=== PATIENT | male | born 1950 | race Caucasian/White ===

== ENCOUNTER → 2017-11-14 13:27 | Outpatient (CLI) | payer MEDICAID, SELFPAY ==
[2017-11-14 14:03] LABS: Basophils # 0.1 K/mm3 (0-0.2); Eosinophils # 0.1 K/mm3 (0.0-0.4); Eosinophils % 2.3 % (0.1-12.0); Hematocrit 40.8 % (42.0-52.0); Hemoglobin 13.5 g/dL (14.1-18.0); Lymphocytes # 1.6 K/mm3 (0.7-4.5); Lymphocytes % 33.3 K/mm3 (10-50); Mean Corpuscular Hemoglobin 32.9 pg (27.0-31.2); Mean Corpuscular Volume 99.7 fl (80-94); Mean Platelet Volume 7.9 fl (7.4-10.4); Monocytes # 0.3 K/mm3 (0.1-1.0); Monocytes % 6.7 % (1.7-9.3); Neutrophils # 2.7 K/mm3 (1.8-7.8); Neutrophils % 56.7 % (37.0-80.0); Platelet Count 206 K/mm3 (142-424); Red Blood Count 4.09 M/mm3 (4.60-6.20); Red Cell Distribution Width 13.4 % (11.5-17.5); White Blood Count 4.8 K/mm3 (4.8-10.8)
[2017-11-14 14:26] LABS: Hemoglobin A1C 5.5 % (0.0-7.0)
[2017-11-14 14:40] LABS: Alanine Aminotransferase 30 U/L (12-78); Albumin Level 3.7 gm/dL (3.4-5.0); Albumin/Globulin Ratio 1.1 (1.1-1.8); Alkaline Phosphatase 154 U/L (46-116); Anion Gap 9.1 mEq/L (5-15); Aspartate Amino Transferase 16 U/L (15-37); Bilirubin,Total 0.4 mg/dL (0.2-1.0); Blood Urea Nitrogen 14 mg/dL (7-18); Calcium 8.9 mg/dL (8.5-10.1); Carbon Dioxide 30 mmol/L (21.0-32.0); Chloride 107 mmol/L (98-107); Creatinine,Serum 0.78 mg/dL (0.70-1.30); Estimated Glomerular Filt Rate 100 ml/min (>60); GFR (African American) 121 ML/MIN (>60); Globulin 3.4 gm/dl (1.3-3.2); Glucose 99 mg/dL (74-106); Potassium 5.1 mmoL/L (3.5-5.1); Sodium 141 mmol/L (136-145); Total Protein,Serum 7.1 gm/dL (6.4-8.2)
[2017-11-15 16:43] LABS: Rapid Plasma Reagin Ab Titer Non Reactive (NonRea<1:1)
== END ==
PROVIDERS: Visit Provider Internal Medicine Adolescent Medicine
DX: H54.62 Unqualified visual loss, left eye, normal vision right eye (principal); R51 Headache
CPT/HCPCS: 36415; 80053; 83036; 85025; 86592

== ENCOUNTER → 2017-11-19 13:04 | Outpatient (CLI) | payer MEDICARE, MEDICAID, SELFPAY ==
--- NOTE | 2017-11-19 13:08 | MR_ITS ---
MR head/brain wo/w con HISTORY: Headache, visual loss left eye ITS.REASON: VISUAL LOSS, LEFT EYE ORDERING PHYSICIAN: Regis Mansfield MD PATIENT AGE: 67 years Comparison: None TECHNIQUE: Standard multiplanar multiecho sequences are performed without and with gadolinium enhancement. FINDINGS: No midline shift, mass effect, intracranial hemorrhage, or hydrocephalus is evident. There is mild generalized atrophy is somewhat greater in the posterior parietal region. No acute infarction. The pituitary and optic chiasm have an unremarkable appearance. No enhancing lesions. There are a few scattered periventricular and subcortical T2 white matter hyperintensities which are nonspecific. Mild mucosal thickening of the ethmoid and frontal sinuses. No sinus air-fluid level. There is a small amount fluid in the right mastoid sinus. No obvious ocular or orbital mass. No large aneurysm apparent. IMPRESSION: 1. No acute intracranial findings. 2. Generalized atrophy somewhat greater in the parietal lobes.
--- NOTE | 2017-11-19 14:04 | HMH.ITSHM ---
HYDROCODONE NEURONTIN GABAPENTIN B-12
== END ==
PROVIDERS: Family Provider Internal Medicine Adolescent Medicine; PCP Internal Medicine Adolescent Medicine; Visit Provider Internal Medicine Adolescent Medicine
DX: H54.62 Unqualified visual loss, left eye, normal vision right eye (principal); R51 Headache
CPT/HCPCS: 70553; A9576

== ENCOUNTER → 2018-07-24 13:15 | Outpatient (CLI) | payer MEDICARE, MEDICAID, SELFPAY ==
--- NOTE | 2018-07-24 13:20 | CT_ITS ---
CT lung screening EXAM: CT LUNG LOW DOSE WO CONTRAST HISTORY: ITS.REASON: TOBACCO USE ORDERING PHYSICIAN: Regis Mansfield MD PATIENT AGE: 68 years COMPARISON: None TECHNIQUE: The exam was performed on a GE Light Speed [address] scanner using 2.90 mGy CTDI. A low dose helical CT CHEST was performed on a multi-detector scanner. All CT scans at the facility use one or more dose reduction, viz: automated exposure control, ma/kV adjustment per patient size (including targeted exams where dose is matched to indication, i.e. head), or iterative reconstruction technique. The LDCT was performed in a facility that meets the criteria for the screening program. Data regarding this exam was submitted to ACR which is an approved registry. The order for this exam indicates that it came as a result of a lung cancer screening counseling shard decision-making visit that included all the elements required of such a visit including smoking cessation. The radiologist interpreting this exam meets the CMS criteria for the LDCT lung cancer screening program. The exam is reported using the Lung-RADS classification scale and reported to the ACR registry. NOTE: This study was performed for the specific purposes of lung cancer screening and is not an alternative to diagnostic chest CT. RADIATION DOSE: CTDI vol(CT dose Index-volume) = 2.90mG DLP (Dose Length Product) = 110.46 mGcm FINDINGS: Changes of COPD with centrilobular emphysema and old granulomatous disease. Gynecomastia is present. There are scattered fibrotic changes. Biapical opacities are present measuring 7 mm on the right and 8 mm on the left. 8 mm fissural nodule is present. Subpleural 6 mm nodule present in the left lower lobe. There are coronary artery calcifications. Small mediastinal lymph nodes are present the largest of which is approximately 2 cm. IMPRESSION: 1. Lung RADS Category: 3, probably benign, scattered pulmonary nodules some of which may be due to areas of fibrosis the largest of which is 8 mm 2. Other findings: COPD, centrilobular emphysema, Coronary artery calcification, mildly prominent mediastinal lymph nodes RECOMMENDATIONS: 6 month LDCT follow-up
== END ==
PROVIDERS: PCP Internal Medicine Adolescent Medicine; Visit Provider Internal Medicine Adolescent Medicine
DX: Z12.2 Encounter for screening for malignant neoplasm of respiratory organs (principal); Z87.891 Personal history of nicotine dependence

== ENCOUNTER 2020-04-14 10:00 | Outpatient (RCR) | payer MEDICARE, MEDICAID, SELFPAY | END 2020-04-14 10:05 | disposition home or self-care (01) | LOC: PT 10:00 | PROVIDERS: PCP Internal Medicine Adolescent Medicine; Visit Provider Physical Medicine & Rehabilitation | DX: S72.92XA Unspecified fracture of left femur, initial encounter for closed fracture (principal); S72.91XA Unspecified fracture of right femur, initial encounter for closed fracture; S32.402A Unspecified fracture of left acetabulum, initial encounter for closed fracture; S82.144A Nondisplaced bicondylar fracture of right tibia, initial encounter for closed fracture | CPT/HCPCS: 97163 ==

== ENCOUNTER → 2020-08-20 12:21 | Outpatient (CLI) | payer MEDICARE, MEDICAID, SELFPAY ==
[2020-08-20 13:05] LABS: Basophils # 0.1 K/mm3 (0-0.2); Basophils % 1.1 % (0.1-2.0); Eosinophils # 0.5 K/mm3 (0.0-0.4); Eosinophils % 6.1 % (0.1-12.0); Hematocrit 38.3 % (42.0-52.0); Hemoglobin 12.8 g/dL (14.1-18.0); Lymphocytes # 2.4 K/mm3 (0.7-4.5); Lymphocytes % 28.1 % (10-50); Mean Corpuscular HGB Conc 33.5 g/dL (31.8-35.4); Mean Corpuscular Hemoglobin 31.9 pg (27.0-31.2); Mean Corpuscular Volume 95.4 fl (80-94); Mean Platelet Volume 8.5 fl (7.4-10.4); Monocytes # 0.6 K/mm3 (0.1-1.0); Monocytes % 6.5 % (1.7-9.3); Neutrophils # 4.9 K/mm3 (1.8-7.8); Neutrophils % 58.2 % (37.0-80.0); Platelet Count 238 K/mm3 (142-424); Red Blood Count 4.01 M/mm3 (4.60-6.20); Red Cell Distribution Width 13.6 % (11.5-17.5); White Blood Count 8.4 K/mm3 (4.8-10.8)
[2020-08-20 14:01] LABS: Alanine Aminotransferase 16 U/L (12-78); Albumin Level 4.3 g/dl (3.5-5.0); Albumin/Globulin Ratio 1.5 (1.1-1.8); Alkaline Phosphatase 137 U/L (38-126); Anion Gap 7.6 mEq/L (5-15); Aspartate Amino Transferase 24 U/L (17-59); Bilirubin,Total 0.6 mg/dl (0.2-1.3); Blood Urea Nitrogen 18 mg/dl (9-20); Calcium 9.9 mg/dl (8.4-10.2); Carbon Dioxide 31 mmol/L (22.0-30.0); Chloride 104 mmol/L (98-107); Chol/HDL Ratio 4.4 (1-3.5); Cholesterol 145 mg/dl (140-200); Estimated Glomerular Filt Rate 96 ml/min (>60); GFR (African American) 116 ML/MIN (>60); Globulin 2.9 g/dL (1.3-3.2); Glucose 94 mg/dl (74-100); HDL Cholesterol 33 mg/dl (40-60); Potassium 4.6 mmoL/L (3.5-5.1); Sodium 138 mmol/L (136-145); Total Protein,Serum 7.2 g/dl (6.3-8.2); Triglycerides 131 mg/dl (30-150); VLDL Cholesterol 26 mg/dL (0-40)
[2020-08-20 14:12] LABS: Direct LDL Cholesterol 77.62 mg/dL (100-129)
[2020-08-23 17:36] LABS: HIV 1 Ab Positive (Negative); HIV 2 Ab Negative (Negative); HIV-1 Ab CHG YES; HIV-2 Ab CHG YES
[2020-08-23 20:28] LABS: HIV Screen 4th Generation wRfx Reactive (Non Reactive); Interpretation: HIV-1 Positive (.)
== END ==
PROVIDERS: Visit Provider Internal Medicine Adolescent Medicine
DX: Z21 Asymptomatic human immunodeficiency virus [HIV] infection status (principal); Z79.899 Other long term (current) drug therapy; Z11.4 Encounter for screening for human immunodeficiency virus [HIV]; D64.9 Anemia, unspecified
CPT/HCPCS: 36415; 80053; 80061; 85025; 86701; 86702; 86703; G0432

== ENCOUNTER → 2020-09-14 17:19 | Outpatient (CLI) | payer MEDICARE, MEDICAID, SELFPAY ==
[2020-09-17 01:07] LABS: HIV 1 RNA, Real time PCR 50 copies/mL (.)
== END ==
PROVIDERS: Visit Provider Internal Medicine Adolescent Medicine
DX: Z21 Asymptomatic human immunodeficiency virus [HIV] infection status (principal)
CPT/HCPCS: 36415; 87536

== ENCOUNTER → 2020-09-15 14:32 | Outpatient (CLI) | payer MEDICARE, MEDICAID, SELFPAY | PROVIDERS: Visit Provider Internal Medicine Adolescent Medicine | DX: Z21 Asymptomatic human immunodeficiency virus [HIV] infection status (principal) ==

== ENCOUNTER → 2020-11-30 16:56 | Outpatient (CLI) | payer MEDICARE, MEDICAID, SELFPAY ==
[2020-11-30 18:57] LABS: Basophils # 0.1 K/mm3 (0-0.2); Basophils % 0.8 % (0.1-2.0); Eosinophils # 0.5 K/mm3 (0.0-0.4); Eosinophils % 5.3 % (0.1-12.0); Hematocrit 36.6 % (42.0-52.0); Hemoglobin 12.6 g/dL (14.1-18.0); Lymphocytes # 2.5 K/mm3 (0.7-4.5); Lymphocytes % 29.4 % (10-50); Mean Corpuscular HGB Conc 34.5 g/dL (31.8-35.4); Mean Corpuscular Hemoglobin 31.7 pg (27.0-31.2); Mean Corpuscular Volume 92.1 fl (80-94); Mean Platelet Volume 8.3 fl (7.4-10.4); Monocytes # 0.6 K/mm3 (0.1-1.0); Monocytes % 6.8 % (1.7-9.3); Neutrophils % 57.7 % (37.0-80.0); Platelet Count 197 K/mm3 (142-424); Red Blood Count 3.98 M/mm3 (4.60-6.20); Red Cell Distribution Width 13.7 % (11.5-17.5); White Blood Count 8.6 K/mm3 (4.8-10.8)
[2020-11-30 19:21] LABS: Chloride 103 mmol/L (98-107); Potassium 4.6 mmoL/L (3.5-5.1); Sodium 138 mmol/L (136-145)
[2020-11-30 19:23] LABS: Blood Urea Nitrogen 12 mg/dl (9-20); Estimated Glomerular Filt Rate 96 ml/min (>60); GFR (African American) 116 ML/MIN (>60)
[2020-11-30 19:24] LABS: Alanine Aminotransferase 24 U/L (12-78); Albumin/Globulin Ratio 1.3 (1.1-1.8); Alkaline Phosphatase 156 U/L (38-126); Anion Gap 9.6 mEq/L (5-15); Aspartate Amino Transferase 31 U/L (17-59); Bilirubin,Total 0.4 mg/dl (0.2-1.3); Calcium 9.1 mg/dl (8.4-10.2); Carbon Dioxide 30 mmol/L (22.0-30.0); Glucose 96 mg/dl (74-100)
[2020-11-30 19:34] LABS: NT Pro Brain Natriuretic Pep. 129 pg/mL (0-125)
[2020-12-03 17:34] LABS: HIV 1 RNA, Real time PCR 30 copies/mL (.)
== END ==
PROVIDERS: Visit Provider Internal Medicine Adolescent Medicine
DX: R60.9 Edema, unspecified (principal); Z21 Asymptomatic human immunodeficiency virus [HIV] infection status; R79.0 Abnormal level of blood mineral; R06.09 Other forms of dyspnea
CPT/HCPCS: 36415; 80053; 83880; 85025; 87536

== ENCOUNTER → 2020-12-07 12:12 | Outpatient (CLI) | payer MEDICARE, MEDICAID, SELFPAY ==
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
--- NOTE | 2020-12-07 13:57 | CT_ITS ---
PROCEDURE: CT LUNG SCREENING CLINICAL INDICATION: HX OF NICOTINE DEPENDENCE COMPARISON: CT LUNGSCREEN CT lung screening from 07/24/2018 CR XR LUMBAR SPINE MIN 4V from 12/07/2020 TECHNIQUE: The exam was performed on a GE Light Speed [address] scanner using 2.90 mGy CTDI. A low dose helical CT CHEST was performed on a multi-detector scanner. All CT scans at the facility use one or more dose reduction, viz: automated exposure control, ma/kV adjustment per patient size (including targeted exams where dose is matched to indication, i.e. head), or iterative reconstruction technique. The LDCT was performed in a facility that meets the criteria for the screening program. Data regarding this exam was submitted to ACR which is an approved registry. The order for this exam indicates that it came as a result of a lung cancer screening counseling shard decision-making visit that included all the elements required of such a visit including smoking cessation. The radiologist interpreting this exam meets the CMS criteria for the LDCT lung cancer screening program. The exam is reported using the Lung-RADS classification scale and reported to the ACR registry. NOTE: This study was performed for the specific purposes of lung cancer screening and is not an alternative to diagnostic chest CT. RADIATION DOSE: CTDI vol(CT dose Index-volume) = 2.90mG DLP (Dose Length Product) = mGcm FINDINGS: COPD with scattered areas of scarring with bronchial thickening and evidence of old granulomatous disease. Scattered areas of pulmonary fibrosis. Benign-appearing fissural nodule in the right minor fissure unchanged. Biapical fibronodular changes are stable. No new suspicious nodules apparent. No change mildly prominent mediastinal lymph nodes OTHER FINDINGS: Cardiomegaly. Coronary artery calcifications. Gynecomastia. Small hiatal hernia. Wedge compression changes of T11 and T12 which have developed since 07/24/2018 with loss of height of approximately 30 percent at T11 and 40 percent at T12 IMPRESSION: Lung-RADS Category 2 Benign Appearance or Behavior Follow-up: Continue annual screening with LDCT in 12 months New wedge compression changes at T11 and T12 Dictated by: Aftab Bowers MD 12/13/2020 09:51 Aftab Bowers MD in [place] 12/13/2020 09:51
== END ==
PROVIDERS: PCP Internal Medicine Adolescent Medicine; Visit Provider Nurse Practitioner Family
DX: R60.0 Localized edema (principal); M54.41 Lumbago with sciatica, right side; Z87.891 Personal history of nicotine dependence; Z12.2 Encounter for screening for malignant neoplasm of respiratory organs
CPT/HCPCS: 71271; 72110; 93306

== ENCOUNTER → 2020-12-17 13:59 | Outpatient (CLI) | payer MEDICARE, MEDICAID, SELFPAY ==
--- NOTE | 2020-12-17 14:15 | MR_ITS ---
PROCEDURE INFORMATION: Exam: MR Lumbar Spine Without and With Contrast Exam date and time: 12/17/2020 2:15 PM Age: 70 years old Clinical indication: Low back pain; Prior surgery; Surgery date: 6+ months; Surgery type: Lumbar surgery years ago; Patient HX: 40 percent wedge compression changes of t12 with possible retropulsion of the posterior superior aspect. Mri May provide further evaluation to determine the acuteness of the compression changes which have developed since 07/24/2018; Additional info: Abnormal findings on diagnostic imaging TECHNIQUE: Imaging protocol: Multiplanar magnetic resonance images of the lumbar spine without and with intravenous contrast. Contrast material: PROHANCE; Contrast volume: 15 ml; Contrast route: IV; COMPARISON: RN FIELD/O MRI-L-SPINE W/O 03/15/2016 2:50 PM FINDINGS: Vertebrae: Compression fracture deformity of the superior endplate of the T12 vertebral body, with approximately 40% loss of vertebral body height and approximately 3 mm retropulsion of posterosuperior fracture fragment. T12 vertebral body is T1 hypointense and STIR hyperintense, suggesting acute/subacute fracture. Dextroscoliosis of the lumbar spine. Spinal cord: Conus terminates at the L1 level. L1-L2: No significant disc disease. No significant spinal canal stenosis. No neural foraminal stenosis. L2-L3: Moderate broad-based posterior disc bulge, causing ventral thecal sac effacement and minimal ventral cord flattening; mild bilateral facet arthropathy; bilateral lateral recess narrowing and moderate bilateral neural foraminal narrowing, left worse than right. L3-L4: No significant disc disease. No significant spinal canal stenosis. No neural foraminal stenosis. L4-L5: Mild broad-based posterior disc bulge, causing ventral thecal sac flattening; no central canal narrowing; mild bilateral facet arthropathy and ligamentum flavum hypertrophy; mild right neural foraminal narrowing. L5-S1: Discogenic endplate changes at the L3-L4 through L5-S1 levels. Mild bilateral facet arthropathy, right worse than left, with associated moderate right neural foraminal narrowing. No central canal narrowing. Sacrum/coccyx: Surgical changes of prior L3-L4 discectomy and posterior paraspinal arelis and pedicle screw fusion, without evidence of acute complications. Soft tissues: Unremarkable. Kidneys and ureters: Simple right renal cyst, for which no further evaluation necessary. IMPRESSION: 1. Compression fracture deformity of the superior endplate of the T12 vertebral body, with approximately 40% loss of vertebral body height and approximately 3 mm retropulsion of posterosuperior fracture fragment. T12 vertebral body is T1 hypointense and STIR hyperintense, suggesting acute/subacute fracture. 2. Multilevel lumbar spine spondylosis as described above.
--- NOTE | 2020-12-17 14:15 | MR_ITS ---
PROCEDURE INFORMATION: Exam: MR Thoracic Spine Without and With Contrast Exam date and time: 12/17/2020 2:15 PM Age: 70 years old Clinical indication: Pain in thoracic spine; With myelopathy; Prior surgery; Surgery date: 6+ months; Surgery type: Lumbar surgery years ago; Patient HX: 40 percent wedge compression changes of t12 with possible retropulsion of the posterior superior aspect. Mri May provide further evaluation to determine the acuteness of the compression changes which have developed since 07/24/2018; Additional info: Abnormal findings on diagnostic imaging TECHNIQUE: Imaging protocol: Multiplanar magnetic resonance images of the thoracic spine without and with contrast. Contrast material: PROHANCE; Contrast volume: 15 ml; Contrast route: IV; COMPARISON: CT LUNG SCREENING 12/07/2020 2:05 PM FINDINGS: Vertebrae: Compression fracture deformity of the T12 vertebral body, with approximately 40% loss of vertebral body height and approximately 3 mm retropulsion of posterosuperior fracture fragment. T12 vertebral body is T1 hypointense and STIR hyperintense, suggesting acute/subacute fracture. Chronic fracture deformity of the anterosuperior aspect of the T11 vertebral body. No evidence of abnormal contrast enhancement. Spinal cord: Normal signal. No cord compression. Discs/Spinal canal/Neural foramina: No significant disc disease. No significant spinal canal stenosis. Soft tissues: Unremarkable. IMPRESSION: Compression fracture deformity of the T12 vertebral body, with approximately 40% loss of vertebral body height and approximately 3 mm retropulsion of posterosuperior fracture fragment. T12 vertebral body is T1 hypointense and STIR hyperintense, suggesting acute/subacute fracture.
== END ==
PROVIDERS: PCP Internal Medicine Adolescent Medicine; Visit Provider Internal Medicine Adolescent Medicine
DX: R93.89 Abnormal findings on diagnostic imaging of other specified body structures (principal)
CPT/HCPCS: 72157; 72158; 76376; A9576

== ENCOUNTER → 2021-01-04 08:14 | Outpatient (POV) | payer MEDICARE, MEDICAID, SELFPAY ==
[2021-01-04 09:26] VITALS: BP 136/76; PULSE 76; RESP 18; O2SAT 98; BMI 24.7
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
== END ==
PROVIDERS: Visit Provider Clinical Nurse Specialist Family Health
DX: M47.896 Other spondylosis, lumbar region (principal); M54.16 Radiculopathy, lumbar region; S22.080A Wedge compression fracture of T11-T12 vertebra, initial encounter for closed fracture; M81.0 Age-related osteoporosis without current pathological fracture
CPT/HCPCS: 99202; G0463

== ENCOUNTER → 2021-03-22 09:24 | Outpatient (CLI) | payer MEDICARE, MEDICAID, SELFPAY ==
--- NOTE | 2021-03-22 09:29 | XR_ITS ---
PROCEDURE: XR DEXA AXIAL SKELETON CLINICAL HISTORY: DISORDER OF BONE,FX OF 12 TH THORACIC VEREBRA COMPARISON: No exams were available for comparison FINDINGS: Right radius 1/3 density is 0.542 with a T-score of -5.2. Left radius 1/3 density is 0.529 grams/centimeters sq with a T-score of -5.4. IMPRESSION: This patient is considered osteoporotic according to the World Health Organization criteria. Fracture risk is high. Treatment is advised. Based on these results a follow-up exam is recommended in 1 year. Dictated by: Aftab Bowers MD 03/22/2021 14:48 Aftab Bowers MD in [place] 03/22/2021 14:48
== END ==
PROVIDERS: PCP Internal Medicine Adolescent Medicine; Visit Provider Physician Assistant Medical
DX: S22.089A Unspecified fracture of T11-T12 vertebra, initial encounter for closed fracture (principal); M89.9 Disorder of bone, unspecified
CPT/HCPCS: 77080

== ENCOUNTER → 2021-10-28 14:45 | Outpatient (CLI) | payer MEDICARE, MEDICAID, SELFPAY ==
--- NOTE | 2021-10-28 14:54 | XR_ITS ---
FINAL REPORT CLINICAL HISTORY: T & L spine Mid back pain Hx of surg in 2018 Best images possible due to pt condition FINDINGS: THORACIC SPINE Three views were obtained. There is no acute fracture. There is no malalignment. There is about 60% compression deformity of the anterior aspect of T12 and about 60% compression deformity of T9. There is accentuation of thoracic kyphosis. There is no soft tissue abnormality. IMPRESSION: Findings are age indeterminate. Consider thoracic spine MRI to assess for marrow edema. LUMBAR SPINE Four views were obtained. There is posterior fusion hardware bridging L3-4. There is no acute fracture. There is 12 degrees of scoliosis convex to the right. There is moderate disc space narrowing at L5-S1. There is no soft tissue abnormality. IMPRESSION: No acute bony abnormality. Moderate disc space narrowing at L5-S1. Reviewed, Interpreted and Dictated by Marcial Benjamin MD Transcribed by Verna Poe Authenticated and [facility]
== END ==
PROVIDERS: PCP Internal Medicine Adolescent Medicine; Visit Provider Internal Medicine Adolescent Medicine
DX: M54.6 Pain in thoracic spine (principal); M54.50 Low back pain, unspecified
CPT/HCPCS: 72084

== ENCOUNTER → 2021-12-23 14:52 | Outpatient (CLI) | payer MEDICARE, MEDICAID, SELFPAY ==
--- NOTE | 2021-12-23 14:58 | CT_ITS ---
FINAL REPORT CLINICAL HISTORY: H/O NICOTINE DEPENDENCE 1 pack per day for 55 years copd COMPARISON: December 07, 2020; July 24, 2018 FINDINGS: Low-Dose Chest CT CTDI vol (mGy): 2.9 DLP (mGy-cm): 96.38 Axial images were obtained from the lung apex to the mid abdomen by computed tomography. Low-dose protocol was utilized. FINDINGS: CHEST: There is no axillary adenopathy. There are multiple borderline size mediastinal lymph nodes. The heart is proper size. There is no pericardial or pleural effusion. Limited images of the upper abdomen demonstrate a lobular mass along the lateral right kidney measuring up to 3.5 cm that cannot be accurately characterized. Lung window images demonstrate moderate changes of emphysema with moderate scarring. There is a calcified granuloma in the right upper lobe. There is a 7 mm nodule near the minor fissure the, stable from prior. There is no new mass or pulmonary nodule. IMPRESSION: S-modifier: Lobular right renal mass cannot be accurately characterized. Recommend renal mass protocol CT. Lung RADS category 2S. Recommend 12 month follow-up low-dose chest CT. Reviewed, Interpreted and Dictated by Ankit Yu III, MD Transcribed by Anoop Vazquez Authenticated and [facility]
== END ==
PROVIDERS: PCP Internal Medicine Adolescent Medicine; Visit Provider Internal Medicine Adolescent Medicine
DX: Z87.891 Personal history of nicotine dependence (principal); Z12.2 Encounter for screening for malignant neoplasm of respiratory organs
CPT/HCPCS: 71271

== ENCOUNTER 2022-02-21 14:54 | Emergency (ER) | payer MEDICARE, MEDICAID, SELFPAY ==
[2022-02-21 14:54] VITALS: BP 117/65; PULSE 105; RESP 20; TEMP 36.7; O2SAT 95; BMI 25.8
--- NOTE | 2022-02-21 15:20 | CT_ITS ---
FINAL REPORT TECHNIQUE: Axial CT images were performed through the head. Coronal reformatted images were submitted. This study was performed with techniques to keep radiation doses as low as reasonably achievable (ALARA). Individualized dose reduction techniques using automated exposure control or adjustment of mA and/or kV according to the patient's size were employed. CLINICAL HISTORY: slurred speech, stroke protocol FINDINGS: The head is asymmetrically positioned in the gantry. There is mild to moderate atrophy. The ventricles are normal in size. There is no evidence of hemorrhage. There is no mass or edema identified. There is no abnormal extra-axial fluid seen. The sinuses are well aerated. IMPRESSION: No acute intracranial process. Reviewed, Interpreted and Dictated by Marcial Benjamin MD Transcribed by Anoop Vazquez Authenticated and [facility]
--- NOTE | 2022-02-21 15:21 | HMH.EDGENADL ---
Discharge Plan Disposition Patient Disposition: Admitted as Observation Condition: Good Chief Complaint: Weakness Prescriptions Prescriptions: No Action hydrocodone-acetaminophen 10-325 mg tablet 1 tab PO QHS PRN acetaminophen 325 mg capsule 325 mg PO Q6H PRN peg 3350-electrolytes [Golytely] 236-22.74-6.74 -5.86 gram recon soln 240 ml PO Q10M Qty: 4000 0RF Rx Instructions: until fecal effluent is clear; do not exceed a total volume [id number] mL lamivudine-zidovudine [Combivir] 150-300 mg tablet 1 tab PO BID efavirenz [Sustiva] 600 mg tablet 600 mg PO QHS gabapentin 800 mg tablet 800 mg PO TID triamcinolone acetonide 0.1 % cream 1 applic TOPICAL TID Referrals Follow up/Referrals: Regis Mansfield MD [Primary Care Provider] - See instructions Clinical Impressions Clinical Impression: Hypoxia Discharge ED Provider: Cole Davidson General Adult HPI General Chief complaint: Weakness Stated complaint: Physician referral, fatigue, weakness Time Seen by Provider: 02/21/22 15:05 Mode of Arrival: Wheelchair Source of Information: Patient Limitations: No Limitations Description of Symptoms (Recalled from ER Triage Doc. by RN): PT STATES HES TIRED, ALL I WANT TO DO IS SLEEP FOR ABOUT 4-5 DAYS. History of Present Illness HPI narrative: brought by friend/family for general weakness and slurred speech, pt says he was tired and sleepy Severity: moderate Consistency: now resolved Relieving factors: none Exacerbating factors: none Associated symptoms: denies other symptoms Treatments prior to arrival: none Related Data Home Medications Medication Instructions Recorded Confirmed acetaminophen 325 mg capsule 325 mg PO Q6H PRN 07/31/18 07/31/18 efavirenz 600 mg tablet (Sustiva) 600 mg PO QHS 07/31/18 07/31/18 gabapentin 800 mg tablet 800 mg PO TID 07/31/18 07/31/18 hydrocodone 10 mg-acetaminophen 1 tab PO QHS PRN 07/31/18 07/31/18 325 mg tablet lamivudine 150 mg-zidovudine 300 1 tab PO BID 07/31/18 07/31/18 mg tablet (Combivir) triamcinolone acetonide 0.1 % 1 applic topical TID 07/31/18 07/31/18 topical cream Previous Rx's Medication Instructions Recorded peg 3350-electrolytes 236 240 ml PO Q10M #4,000 mL 07/31/18 gram-22.74 gram-6.74 gram-5.86 gram solution (Golytely) Allergies Allergy/AdvReac Type Severity Reaction Status Date / Time Penicillins [PENICILLINS] Allergy Unknown Verified 02/21/22 17:38 [facility] Social History Smoking Status: Current every day smoker alcohol intake: never substance use type: denies use current occupational status: unemployed Travel in the last 8 weeks: None ROS Obtained: Yes All systems reviewed & no additional complaints except as documented Physical Exam General General appearance: alert and in no apparent distress Head Head exam: atraumatic and normocephalic Eye Eye exam: Present normal appearance, PERRL and EOMI ENT ENT exam: Present normal exam, normal oropharynx and mucous membranes moist Neck Neck exam: Present normal inspection, full ROM and trachea midline Chest Chest inspection: Present normal inspection and symmetric chest wall rise; Absent tenderness Respiratory Respiratory exam: Present normal lung sounds bilaterally; Absent respiratory distress or wheezes Cardiovascular Cardiovascular exam: Present regular rate and normal rhythm; Absent bradycardia Abdominal Exam Abdominal exam: Present soft; Absent distention or tenderness Extremities Exam Extremities exam: Present normal inspection; Absent tenderness Back Exam Back exam: Present normal inspection and full ROM; Absent CVA tenderness (R) or CVA tenderness (L) Neurological Exam Neurological exam: Present alert, oriented X3, CN II-XII intact and other (nih 0); Absent motor sensory deficit Psychiatric Psychiatric exam: Present normal affect and normal mood; Absent depress
--- NOTE | 2022-02-21 15:25 | PC.NURSE ---
PT TO CT
--- NOTE | 2022-02-21 15:33 | PC.NURSE ---
PT RETURNED FROM CT
--- NOTE | 2022-02-21 15:42 | PC.NURSE ---
PT SAT 83-85% ON ROOM AIR. NOTIFIED. ORDERS FOR ABG, RESPIRATORY NOTIFIED. PT STATES HIS OXYGEN RUNS LOW, [facility] TOLD HIM THAT AWARE, WANTS ROOM AIR ABG
[2022-02-21 15:44] LABS: Basophils # 0.1 K/mm3 (0-0.2); Basophils % 0.6 % (0.1-2.0); Eosinophils % 0.3 % (0.1-12.0); Hematocrit 33.3 % (42.0-52.0); Hemoglobin 10.8 g/dL (14.1-18.0); Lymphocytes # 0.7 K/mm3 (0.7-4.5); Lymphocytes % 4.9 % (10-50); Mean Corpuscular HGB Conc 32.5 g/dL (31.8-35.4); Mean Corpuscular Hemoglobin 30.7 pg (27.0-31.2); Mean Corpuscular Volume 94.5 fl (80-94); Mean Platelet Volume 9.3 fl (7.4-10.4); Monocytes # 1.1 K/mm3 (0.1-1.0); Monocytes % 7.2 % (1.7-9.3); Neutrophils # 12.8 K/mm3 (1.8-7.8); Neutrophils % 87.1 % (37.0-80.0); Platelet Count 233 K/mm3 (142-424); Red Blood Count 3.52 M/mm3 (4.60-6.20); Red Cell Distribution Width 16.6 % (11.5-17.5); White Blood Count 14.7 K/mm3 (4.8-10.8)
--- NOTE | 2022-02-21 15:44 | PC.NURSE ---
called respiratory for abg
[2022-02-21 15:45] LABS: Chloride 97 mmol/L (98-107); Potassium 3.5 mmoL/L (3.5-5.1); Sodium 135 mmol/L (136-145)
[2022-02-21 15:47] VITALS: BP 108/65; PULSE 111; RESP 22; O2SAT 93
[2022-02-21 15:47] LABS: Blood Urea Nitrogen 15 mg/dl (9-20); Creatinine Clearance Estimated 76 mL/min (50-200); Estimated Glomerular Filt Rate 96 ml/min (>60); GFR (African American) 116 ML/MIN (>60)
[2022-02-21 15:48] LABS: Alanine Aminotransferase 20 U/L (12-78); Albumin Level 3.9 g/dl (3.5-5.0); Albumin/Globulin Ratio 1.2 (1.1-1.8); Alkaline Phosphatase 177 U/L (38-126); Anion Gap 11.5 mEq/L (5-15); Aspartate Amino Transferase 33 U/L (17-59); Bilirubin,Total 0.5 mg/dl (0.2-1.3); Carbon Dioxide 30 mmol/L (22.0-30.0); Globulin 3.2 g/dL (1.3-3.2); Total Protein,Serum 7.1 g/dl (6.3-8.2)
[2022-02-21 15:49] LABS: Calcium 9.1 mg/dl (8.4-10.2); Glucose 132 mg/dl (74-100)
[2022-02-21 15:51] LABS: MANUAL DIFFERENTIAL MANUAL DIFFERENTIAL (MANUAL DIFF)
--- NOTE | 2022-02-21 15:51 | PC.NURSE ---
O2 APPLIED AT 2L/NC AT THIS TIME PT WITHOUT NEEDS AT THIS TIME
[2022-02-21 15:55] LABS: ABG Base Excess 3.1 mmol/L (-2.4-2.3); ABG HCO3 27.4 mmhg (22.0-26.0); ABG Oxygen Saturation 89 % (90-100); ABG PCO2 42.3 mmhg (35.0-45.0); ABG PH 7.43 mmol/L (7.35-7.45); ABG PO2 54.2 mmhg (80-100); ABG TCO2 28.7 mmhg (23-27)
[2022-02-21 15:57] LABS: Allen's Test Acceptable; Oxygen RA %; Source Left Radial
[2022-02-21 16:00] VITALS: BP 111/66; PULSE 106; RESP 24; O2SAT 92
--- NOTE | 2022-02-21 16:08 | XR_ITS ---
FINAL REPORT CLINICAL HISTORY: hypoxia COMPARISON: April 2016 FINDINGS: The heart is mildly enlarged. The mediastinum is within normal limits. The lungs are underinflated. There are chronic changes in the lung bases accentuated by underinflation. There is no pleural effusion. There is no pneumothorax. The bony thorax is intact. IMPRESSION: No acute cardiopulmonary process. Reviewed, Interpreted and Dictated by Marcial Benjamin MD Transcribed by Anoop Vazquez Authenticated and [facility]
--- NOTE | 2022-02-21 16:17 | PC.NURSE ---
XR AT BEDSIDE
[2022-02-21 16:30] VITALS: BP 107/61; PULSE 108; RESP 27; O2SAT 92
--- NOTE | 2022-02-21 16:32 | PC.NURSE ---
PT UNABLE TO VERIFY MED LIST
[2022-02-21 16:33] LABS: D-Dimer 2.43 ug/mL (0.0-0.5)
[2022-02-21 16:39] LABS: Coronavirus 19, PCR Not Detected (NotDetected); Influenza A, PCR Not Detected (NotDetected); Influenza B, PCR Not Detected (NotDetected)
--- NOTE | 2022-02-21 16:42 | PC.NURSE ---
ED MD AT BEDSIDE TO DISCUSS POC
[2022-02-21 16:47] LABS: Procalcitonin 3.24 ng/mL (0.0-2.0)
[2022-02-21 16:52] LABS: Lymphocytes % 13 % (10-50); Monocytes % 4 % (2-9); Neutrophils % 82 % (42-76); Total Cells Counted 100
[2022-02-21 16:53] LABS: Platelet Estimate Normal; RBC Morphology Normal
[2022-02-21 16:56] LABS: Lactic Acid 1.1 mmol/L (0.7-2.1)
--- NOTE | 2022-02-21 16:59 | CT_ITS ---
PROCEDURE INFORMATION: Exam: CTA Chest With Contrast Exam date and time: 02/21/2022 6:37 PM Age: 71 years old Clinical indication: Shortness of breath; Additional info: Hypoxia, elev d dimer TECHNIQUE: Imaging protocol: Computed tomographic angiography of the chest with contrast. 3D rendering (Not supervised by radiologist): MIP and/or 3D reconstructed images were created by the technologist. Radiation optimization: All CT scans at this facility use at least one of these dose optimization techniques: automated exposure control; mA and/or kV adjustment per patient size (includes targeted exams where dose is matched to clinical indication); or iterative reconstruction. Contrast material: ISOVUE; Contrast volume: 70 ml; Contrast route: INTRAVENOUS (IV); COMPARISON: CR XR CHEST PORTABLE 02/21/2022 4:28 PM FINDINGS: Pulmonary arteries: Impression no pulmonary embolus. No pneumonia. Subsegmental atelectasis and interstitial changes as above. Aorta: The aorta demonstrates mild atherosclerotic calcification. Lungs: bibasal subsegmental atelectasis. There is subpleural reticulation and upper lobe predominant emphysema. Pleural spaces: Unremarkable. No pneumothorax. No pleural effusion. Heart: The left atrial appendage is normal. Mild coronary artery calcifications cardiomegaly attributed to multi cardiac chamber enlargement Mediastinal space: Circumferential thickening of the distal esophagus noted. Lymph nodes: Borderline prominent mediastinal nodes likely reactive. For instance subcarinal node measures 10 mm in short axis. Spleen: Scattered splenic granulomas Kidneys and ureters: 5 cm simple appearing right renal cyst. Bones/joints: Age-indeterminate but chronic appearing compression deformities at T9 T11 and T12 vertebrae. Healed 5 6 left rib fractures Soft tissues: Unremarkable. IMPRESSION: 1. No pulmonary embolus. 2. No pneumonia. Interstitial changes as above. 3. Age-indeterminate chronic vertebral fractures 4. Circumferential soft tissue thickening of the distal esophagus is nonspecific but can be seen in the context of esophageal dysmotility. 5. 5 cm simple appearing right renal cyst COMMENTS: Consistent with the [employer]'s Incidental Findings Committee white paper (J Am Arturo Radiol 2018): Any incidental renal lesion less than 1 cm or classified as too small to characterize, or any incidental cystic renal lesion characterized as simple-appearing, is likely benign. No follow-up imaging is recommended for these lesions per consensus recommendations based on imaging criteria.
--- NOTE | 2022-02-21 17:24 | ECG_ITS ---
APPROVED REPORT Exam: Resting ECG HR:108 bpm ECG Measurements Heart Rate 108 AXES QRSd 90 QRS -9 QT 306 T -1 QTc 370 Conclusion ATRIAL FIBRILLATION WITH RAPID VENTRICULAR RESPONSE NONSPECIFIC T-WAVE ABNORMALITY ABNORMAL RHYTHM ECG UNCONFIRMED REPORT Electronically signed by : Regis Mansfield MD 02/22/2022 22:05:24
--- NOTE | 2022-02-21 17:38 | PC.NURSE ---
PT TO CT AT THIS TIME
--- NOTE | 2022-02-21 17:52 | PC.NURSE ---
PT RETURNED FROM CT
--- NOTE | 2022-02-21 18:07 | PC.NURSE ---
ROUNDED ON PT, UPDATED FAMILY ON POC. NO NEEDS AT THIS TIME
--- NOTE | 2022-02-21 18:37 | PC.NURSE ---
Dr. Reece potter
--- NOTE | 2022-02-21 18:38 | PC.NURSE ---
RESPIRATORY AT BEDSIDE
--- NOTE | 2022-02-21 18:39 | PC.NURSE ---
speaking with Dr. Newell
--- NOTE | 2022-02-21 18:39 | PC.NURSE ---
DR. GERARDO SPEAKING WITH DR. LEMUS
--- NOTE | 2022-02-21 18:41 | PC.NURSE ---
DR. GERARDO SPEAKING WITH PT AND FAMILY FOR POSSIBLE ADMISSION
--- NOTE | 2022-02-21 18:45 | PC.NURSE ---
CHIP TESTER NOTIFIED OF ADMISSION
[2022-02-21 18:50] VITALS: BP 108/65; PULSE 95; RESP 18; TEMP 36.6; O2SAT 95
--- NOTE | 2022-02-21 18:50 | PC.NURSE ---
1850 PT REFUSED ADMISSION. POC EXPLAINED BY DR. GERARDO TO PT AND FAMILY. PT EXPLAINED RISKS AND BENEFITS. AMA FORM EXPLAINED TO PT. QUESTIONS ENCOURAGED AND ANSWERED. PT AND FAMILY INSTRUCTED TO RETURN AT ANY TIME. V/U
== END 2022-02-21 18:50 | disposition left against medical advice (07) ==
PROVIDERS: Emergency Provider Emergency Medicine; PCP Internal Medicine Adolescent Medicine
DX: R09.02 Hypoxemia (principal); R53.1 Weakness; R53.82 Chronic fatigue, unspecified; R47.81 Slurred speech; F17.200 Nicotine dependence, unspecified, uncomplicated; Z20.822 Contact with and (suspected) exposure to COVID-19; Z79.1 Long term (current) use of non-steroidal anti-inflammatories (NSAID); Z79.899 Other long term (current) drug therapy; Z88.0 Allergy status to penicillin
CPT/HCPCS: 36415; 70450; 71045; 71275; 80053; 82803; 83605; 84145; 85007; 85025; 85378; 87040; 93005; 96374; 99285; C9803; J0456; J0696; Q9967; U0003; U0005

== ENCOUNTER 2022-07-04 10:10 | Outpatient (CLI) | payer MEDICARE, MEDICAID, SELFPAY ==
[2022-07-04 10:22] VITALS: BMI 23.6
[2022-07-04 10:44] LABS: Chloride 102 mmol/L (98-107); Potassium 4.3 mmoL/L (3.5-5.1); Sodium 139 mmol/L (136-145)
[2022-07-04 10:47] LABS: Anion Gap 10.3 mEq/L (5-15); Blood Urea Nitrogen 16 mg/dl (9-20); Carbon Dioxide 31 mmol/L (22.0-30.0); Creatinine Clearance Estimated 71 mL/min (50-200); Estimated Glomerular Filt Rate 83 ml/min (>60); GFR (African American) 101 ML/MIN (>60)
[2022-07-04 10:48] LABS: Calcium 8.7 mg/dl (8.4-10.2); Glucose 103 mg/dl (74-100)
[2022-07-04 11:35] VITALS: BP 143/72; PULSE 69; RESP 18; TEMP 36.3; O2SAT 99
[2022-07-04 11:50] VITALS: BP 142/76; PULSE 72; RESP 18; O2SAT 98
[2022-07-04 12:23] VITALS: BP 150/86; PULSE 70; RESP 18; O2SAT 98
== END 2022-07-04 12:47 | disposition home or self-care (01) ==
LOC: INF 10:12
PROVIDERS: PCP Internal Medicine Adolescent Medicine; Visit Provider Physician Assistant Medical
DX: M81.0 Age-related osteoporosis without current pathological fracture (principal)
CPT/HCPCS: 80048; 96360; J3489

== ENCOUNTER → 2022-08-08 15:28 | Outpatient (CLI) | payer MEDICARE, MEDICAID, SELFPAY ==
[2022-08-08 17:21] LABS: Anion Gap 12.7 mEq/L (5-15); Blood Urea Nitrogen 12 mg/dl (9-20); Calcium 8.5 mg/dl (8.4-10.2); Carbon Dioxide 28 mmol/L (22.0-30.0); Chloride 103 mmol/L (98-107); Estimated Glomerular Filt Rate 111 ml/min (>60); GFR (African American) 135 ML/MIN (>60); Glucose 121 mg/dl (74-100); Potassium 4.7 mmoL/L (3.5-5.1); Sodium 139 mmol/L (136-145)
== END ==
PROVIDERS: PCP Internal Medicine Adolescent Medicine; Visit Provider Physician Assistant Medical
DX: M80.08XA Age-related osteoporosis with current pathological fracture, vertebra(e), initial encounter for fracture (principal)
CPT/HCPCS: 36415; 80048

== ENCOUNTER → 2022-08-10 12:52 | Outpatient (CLI) | payer MEDICARE, MEDICAID, SELFPAY ==
[2022-08-10 13:14] LABS: Basophils # 0.1 K/mm3 (0-0.2); Basophils % 1.4 % (0.1-2.0); Eosinophils # 0.5 K/mm3 (0.0-0.4); Eosinophils % 7.5 % (0.1-12.0); Hematocrit 37.8 % (42.0-52.0); Hemoglobin 12.1 g/dL (14.1-18.0); Lymphocytes # 2.1 K/mm3 (0.7-4.5); Lymphocytes % 30.4 % (10-50); Mean Corpuscular HGB Conc 32.2 g/dL (31.8-35.4); Mean Corpuscular Hemoglobin 30.2 pg (27.0-31.2); Mean Corpuscular Volume 93.9 fl (80-94); Mean Platelet Volume 9.7 fl (7.4-10.4); Monocytes # 0.7 K/mm3 (0.1-1.0); Monocytes % 9.3 % (1.7-9.3); Neutrophils # 3.6 K/mm3 (1.8-7.8); Neutrophils % 51.3 % (37.0-80.0); Platelet Count 194 K/mm3 (142-424); Red Blood Count 4.02 M/mm3 (4.60-6.20); Red Cell Distribution Width 14.5 % (11.5-17.5)
[2022-08-10 13:31] LABS: Chloride 103 mmol/L (98-107)
[2022-08-10 13:32] LABS: Potassium 4.5 mmoL/L (3.5-5.1); Sodium 139 mmol/L (136-145)
[2022-08-10 13:34] LABS: Alanine Aminotransferase 19 U/L (12-78); Alkaline Phosphatase 163 U/L (38-126); Anion Gap 12.5 mEq/L (5-15); Aspartate Amino Transferase 28 U/L (17-59); Bilirubin,Total 0.4 mg/dl (0.2-1.3); Blood Urea Nitrogen 13 mg/dl (9-20); Carbon Dioxide 28 mmol/L (22.0-30.0); Estimated Glomerular Filt Rate 96 ml/min (>60); GFR (African American) 116 ML/MIN (>60)
[2022-08-10 13:35] LABS: Albumin Level 4.1 g/dl (3.5-5.0); Albumin/Globulin Ratio 1.4 (1.1-1.8); Calcium 8.8 mg/dl (8.4-10.2); Chol/HDL Ratio 3.3 (1-3.5); Cholesterol 127 mg/dl (140-200); Glucose 95 mg/dl (74-100); HDL Cholesterol 38 mg/dl (40-60); Total Protein,Serum 7.1 g/dl (6.3-8.2); Triglycerides 110 mg/dl (30-150); VLDL Cholesterol 22 mg/dL (0-40)
[2022-08-10 13:41] LABS: Opiate Screen,Urine Positive ng/ml (<300)
[2022-08-10 13:42] LABS: Phencyclidine Screen,Urine Negative ng/ml (<25)
[2022-08-10 13:43] LABS: Amphetamine/Metha Screen,Urine Negative ng/ml (<1000)
[2022-08-10 13:44] LABS: Barbiturates Screen,Urine Negative ng/ml (<200)
[2022-08-10 13:45] LABS: Benzodiazepines Screen,Urine Negative ng/ml (<200)
[2022-08-10 13:46] LABS: Direct LDL Cholesterol 70.46 mg/dL (100-129)
[2022-08-10 13:47] LABS: Cannabinoid Screen,Urine Negative ng/ml (<50)
[2022-08-10 13:48] LABS: Cocaine Screen,Urine Negative ng/ml (<300); Methadone Screen,Urine Negative ng/ml (<300)
[2022-08-10 14:04] LABS: Thyroid Stimulating Hormone 1.84 uIU/mL (0.465-4.68)
[2022-08-10 15:17] LABS: Prostate Specific Ag Screen 0.1 ng/ml (0.0-4.0)
[2022-08-21 19:15] LABS: 1,25 Dihydroxy Vitamin D 110 pg/mL (.); 1,25-Dihydroxy, Vitamin D-2 <10 pg/mL (.); 1,25-Dihydroxy, Vitamin D-3 108 pg/mL (.)
== END ==
PROVIDERS: PCP Family Medicine; Visit Provider Family Medicine
DX: Z00.00 Encounter for general adult medical examination without abnormal findings (principal); F11.90 Opioid use, unspecified, uncomplicated; M81.0 Age-related osteoporosis without current pathological fracture; I51.9 Heart disease, unspecified; M47.816 Spondylosis without myelopathy or radiculopathy, lumbar region; R60.9 Edema, unspecified; Z12.5 Encounter for screening for malignant neoplasm of prostate; E66.9 Obesity, unspecified; Z68.30 Body mass index [BMI] 30.0-30.9, adult
CPT/HCPCS: 36415; 80053; 80061; 80305; 82652; 84443; 85025; G0103

== ENCOUNTER → 2022-09-19 15:55 | Outpatient (CLI) | payer MEDICARE, MEDICAID, SELFPAY ==
--- NOTE | 2022-09-19 16:06 | XR_ITS ---
FINAL REPORT CLINICAL HISTORY: injury, pain, erythema, edema FINDINGS: LEFT FOREARM 2 views of the left forearm were obtained. There is no acute fracture or dislocation. The joints are intact. There is a small metallic foreign body in the distal volar soft tissues measuring 2 mm. IMPRESSION: No acute bony abnormality. Small radiopaque foreign body as above. Reviewed, Interpreted and Dictated by Carmen Babcock MD Transcribed by Tere Porter Authenticated and [facility]
--- NOTE | 2022-09-19 16:06 | XR_ITS ---
FINAL REPORT CLINICAL HISTORY: Left arm injury, pain, erythema, edema FINDINGS: LEFT HUMERUS Two views show no evidence of an acute, displaced fracture or dislocation of the visualized bony architecture. The joint spaces appear normal. IMPRESSION: Unremarkable exam. Reviewed, Interpreted and Dictated by Carmen Babcock MD Transcribed by Tere Porter Authenticated and [facility]
== END ==
PROVIDERS: PCP Nurse Practitioner Family; Visit Provider Nurse Practitioner Family
DX: L03.114 Cellulitis of left upper limb (principal); M79.602 Pain in left arm; R60.0 Localized edema
CPT/HCPCS: 73060; 73090

== ENCOUNTER → 2022-10-09 15:00 | Outpatient (CLI) | payer MEDICARE, MEDICAID, SELFPAY ==
[2022-10-09 17:56] LABS: Basophils # 0.1 K/mm3 (0-0.2); Basophils % 1.1 % (0.1-2.0); Eosinophils # 0.5 K/mm3 (0.0-0.4); Eosinophils % 6.5 % (0.1-12.0); Lymphocytes # 2.3 K/mm3 (0.7-4.5); Lymphocytes % 31.9 % (10-50); Mean Corpuscular HGB Conc 31.6 g/dL (31.8-35.4); Mean Corpuscular Hemoglobin 29.4 pg (27.0-31.2); Mean Platelet Volume 9.2 fl (7.4-10.4); Monocytes # 0.6 K/mm3 (0.1-1.0); Neutrophils # 3.8 K/mm3 (1.8-7.8); Neutrophils % 52.5 % (37.0-80.0); Platelet Count 271 K/mm3 (142-424); Red Blood Count 4.09 M/mm3 (4.60-6.20); Red Cell Distribution Width 14.4 % (11.5-17.5); White Blood Count 7.2 K/mm3 (4.8-10.8)
[2022-10-09 19:17] LABS: Erythrocyte Sedimentation Rate 30 mm/hr (0-20)
[2022-10-09 19:20] LABS: Alanine Aminotransferase 18 U/L (12-78); Albumin Level 4.2 g/dl (3.5-5.0); Albumin/Globulin Ratio 1.3 (1.1-1.8); Alkaline Phosphatase 130 U/L (38-126); Anion Gap 12.9 mEq/L (5-15); Aspartate Amino Transferase 29 U/L (17-59); Bilirubin,Total 0.3 mg/dl (0.2-1.3); Blood Urea Nitrogen 10 mg/dl (9-20); Calcium 9.3 mg/dl (8.4-10.2); Carbon Dioxide 32 mmol/L (22.0-30.0); Chloride 100 mmol/L (98-107); Estimated Glomerular Filt Rate 96 ml/min (>60); GFR (African American) 116 ML/MIN (>60); Globulin 3.3 g/dL (1.3-3.2); Glucose 90 mg/dl (74-100); Potassium 4.9 mmoL/L (3.5-5.1); Sodium 140 mmol/L (136-145); Total Protein,Serum 7.5 g/dl (6.3-8.2); Uric Acid 5.3 mg/dl (3.5-8.5)
[2022-10-09 19:30] LABS: C-Reactive Protein 7.8 mg/L (0-4)
== END ==
PROVIDERS: PCP Nurse Practitioner Family; Visit Provider Nurse Practitioner Family
DX: M25.522 Pain in left elbow (principal); M79.674 Pain in right toe(s)
CPT/HCPCS: 36415; 80053; 84550; 85025; 85651; 86140

== ENCOUNTER → 2022-11-07 16:38 | Outpatient (CLI) | payer MEDICARE, MEDICAID, SELFPAY | PROVIDERS: PCP Nurse Practitioner Family; Visit Provider Nurse Practitioner Family | DX: M25.522 Pain in left elbow (principal) ==

== ENCOUNTER → 2022-11-21 13:28 | Outpatient (CLI) | payer MEDICARE, MEDICAID, SELFPAY ==
[2022-11-23 17:08] LABS: % CD4 Positive Lymphs 39.9 % (30.8-58.5); Abs. Basophils 0.1 x10E3/uL (0.0-0.2); Abs. Eosinophils 0.5 x10E3/uL (0.0-0.4); Abs. Lymphocytes 2.5 x10E3/uL (0.7-3.1); Abs. Monocytes 0.6 x10E3/uL (0.1-0.9); Abs. Neutrophil 3.8 x10E3/uL (1.4-7.0); Absolute CD4 helper 998 /uL (359-1519); Eosinophils 6 % (Not Estab.); HCT 37.6 % (37.5-51.0); HGB 12.1 g/dL (13.0-17.7); Immature Granulocytes 1 % (Not Estab.); Lymphocytes 33 % (Not Estab.); MCH 30.9 pg (26.6-33.0); MCHC 32.2 g/dL (31.5-35.7); MCV 96 fL (79-97); Monocytes 8 % (Not Estab.); Neutrophils 51 % (Not Estab.); Platelets 213 x10E3/uL (150-450); RBC 3.92 x10E6/uL (4.14-5.80); RDW 14.7 % (11.6-15.4); WBC 7.5 x10E3/uL (3.4-10.8)
== END ==
PROVIDERS: PCP Nurse Practitioner Family; Visit Provider Nurse Practitioner Family
DX: B20 Human immunodeficiency virus [HIV] disease (principal)
CPT/HCPCS: 36415; 86361

== ENCOUNTER 2023-01-06 15:16 | Observation (INO) | payer MEDICARE, MEDICAID, SELFPAY ==
[2023-01-06] VITALS (7 sets, daily range): BP systolic 106–123; BP diastolic 42–91; PULSE 67–78; RESP 18–20; TEMP 36.6–36.9; O2SAT 91–95; BMI 29.0; BMI 36.0
--- NOTE | 2023-01-06 15:34 | PC.NURSE ---
checked on pt , he is sitting with family in lobby
--- NOTE | 2023-01-06 16:56 | PC.NURSE ---
Dr. Mckeon at BS for pt eval
--- NOTE | 2023-01-06 17:19 | CT_ITS ---
PROCEDURE INFORMATION: Exam: CT Right Lower Extremity With Contrast; Lower Leg Exam date and time: 01/06/2023 6:17 PM Age: 72 years old Clinical indication: Swelling, leg or foot; Additional info: Swelling, concern for nec fasc or joint infection TECHNIQUE: Imaging protocol: CT of the right lower extremity with intravenous contrast was performed. Exam focused on the lower leg. Radiation optimization: All CT scans at this facility use at least one of these dose optimization techniques: automated exposure control; mA and/or kV adjustment per patient size (includes targeted exams where dose is matched to clinical indication); or iterative reconstruction. Contrast material: ISOVUE; Contrast volume: 120 ml; Contrast route: IV; REPORTING DATA: Count of CT and Cardiac NM exams in prior 12 months: This patient has received 2 known CTs and 0 known cardiac nuclear medicine studies in the 12 months prior to the current study. COMPARISON: EXTLRWO CT EXT.LOWER-RT-W/O CONTRAST 03/15/2016 4:09 PM FINDINGS: Limitations: Streak artifact from extensive surgical hardware somewhat limits the study. Bones/joints: Status post intramedullary arelis fixation of the femur and tibia. Partially visualized arthroplasty of the left knee. There is diffuse osseous demineralization. Soft tissues: Moderate soft tissue swelling about the knee with skin thickening and subcutaneous edema without evidence for focal fluid collection. No evidence for subcutaneous gas. Vasculature: Scattered atherosclerotic disease of the arterial vasculature. IMPRESSION: Postsurgical changes in the femur and tibia with moderate soft tissue edema but no focal fluid collection or evidence for soft tissue gas. Evaluation of the joint is limited secondary to streak artifact from surgical hardware but no large effusion is seen.
[2023-01-06 17:48] LABS: Basophils # 0.1 K/mm3 (0-0.2); Basophils % 0.6 % (0.1-2.0); Eosinophils # 0.5 K/mm3 (0.0-0.4); Eosinophils % 4.9 % (0.1-12.0); Hematocrit 36.9 % (42.0-52.0); Hemoglobin 11.5 g/dL (14.1-18.0); Lymphocytes % 20.4 % (10-50); Mean Corpuscular HGB Conc 31.1 g/dL (31.8-35.4); Mean Corpuscular Hemoglobin 30.4 pg (27.0-31.2); Mean Corpuscular Volume 97.8 fl (80-94); Mean Platelet Volume 8.9 fl (7.4-10.4); Monocytes # 0.7 K/mm3 (0.1-1.0); Monocytes % 7.1 % (1.7-9.3); Neutrophils # 6.6 K/mm3 (1.8-7.8); Platelet Count 347 K/mm3 (142-424); Red Blood Count 3.78 M/mm3 (4.60-6.20); Red Cell Distribution Width 14.8 % (11.5-17.5); White Blood Count 9.9 K/mm3 (4.8-10.8)
[2023-01-06 17:50] LABS: VBG Base Excess 3.5 mmol/L (-2.4-2.3); VBG HCO3 29.2 mmol/L (23-30); VBG Oxygen Saturation 43.7 % (50-70); VBG PH 7.34 mmol/L (7.31-7.41); VBG PO2 23.2 mmol/L (28-40); VBG Total CO2 30.9 mmol/L (23-27)
[2023-01-06 17:55] LABS: Alanine Aminotransferase 28 U/L (12-78); Albumin Level 3.7 g/dl (3.5-5.0); Albumin/Globulin Ratio 0.9 (1.1-1.8); Alkaline Phosphatase 167 U/L (38-126); Anion Gap 10.2 mEq/L (5-15); Aspartate Amino Transferase 25 U/L (17-59); Bilirubin,Total 0.2 mg/dl (0.2-1.3); Blood Urea Nitrogen 20 mg/dl (9-20); Calcium 9.4 mg/dl (8.4-10.2); Carbon Dioxide 33 mmol/L (22.0-30.0); Chloride 100 mmol/L (98-107); Creatine Kinase 46 U/L (55-170); Creatinine Clearance Estimated 53 mL/min (50-200); Estimated Glomerular Filt Rate 50 ml/min (>60); GFR (African American) 61 ML/MIN (>60); Globulin 4.2 g/dL (1.3-3.2); Glucose 104 mg/dl (74-100); Potassium 5.2 mmoL/L (3.5-5.1); Sodium 138 mmol/L (136-145); Total Protein,Serum 7.9 g/dl (6.3-8.2)
[2023-01-06 17:56] LABS: Lactic Acid 0.9 mmol/L (0.7-2.1)
[2023-01-06 18:12] LABS: Procalcitonin 0.146 ng/mL (0.0-2.0)
[2023-01-06 18:18] LABS: Erythrocyte Sedimentation Rate > 140 mm/hr (0-20)
--- NOTE | 2023-01-06 18:24 | PC.NURSE ---
Pt returned from RAD
--- NOTE | 2023-01-06 19:05 | PC.NURSE ---
called pharmacy to verify vanc dose
--- NOTE | 2023-01-06 19:11 | PC.NURSE ---
Verified vanc dose per pharmacy. See mar for changes.
--- NOTE | 2023-01-06 20:00 | PC.NURSE ---
pt is very upset about not being able to smoke while in the hospital. Hospitalist explained to patient the risks and benefits.
--- NOTE | 2023-01-06 20:14 | PC.NURSE ---
Called report to Carol NICK on 2nd floor, all questions answered
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
--- NOTE | 2023-01-06 20:53 | PC.NURSE ---
Patient arrived to floor via wheelchair at 20:25.
[2023-01-07] VITALS: BP 108/59; PULSE 71; RESP 18; TEMP 36.9; O2SAT 91
[2023-01-07 04:00] VITALS: BP 112/46; PULSE 73; RESP 18; TEMP 37; O2SAT 94; BMI 36.1
--- NOTE | 2023-01-07 05:30 | PC.NURSE ---
pt admitted with cellulitis to right lower leg. leg is warm, red, swollen with bursted dry blisters, wound cx done. pt receiving iv zosyn and vancomycin. pain treated with liz hydrocodone. will cont with poc
[2023-01-07 07:30] VITALS: BP 108/57; PULSE 71; RESP 18; TEMP 37.2; O2SAT 94
[2023-01-07 07:30] LABS: Basophils # 0.1 K/mm3 (0-0.2); Basophils % 0.8 % (0.1-2.0); Eosinophils # 0.5 K/mm3 (0.0-0.4); Eosinophils % 5.8 % (0.1-12.0); Hematocrit 39.7 % (42.0-52.0); Hemoglobin 12.4 g/dL (14.1-18.0); Lymphocytes # 1.8 K/mm3 (0.7-4.5); Lymphocytes % 20.4 % (10-50); Mean Corpuscular HGB Conc 31.1 g/dL (31.8-35.4); Mean Corpuscular Volume 99.5 fl (80-94); Mean Platelet Volume 8.9 fl (7.4-10.4); Monocytes # 0.6 K/mm3 (0.1-1.0); Monocytes % 6.7 % (1.7-9.3); Neutrophils % 66.3 % (37.0-80.0); Platelet Count 324 K/mm3 (142-424); Red Blood Count 3.99 M/mm3 (4.60-6.20); Red Cell Distribution Width 14.9 % (11.5-17.5)
[2023-01-07 07:40] LABS: Alanine Aminotransferase 26 U/L (12-78); Albumin Level 3.6 g/dl (3.5-5.0); Albumin/Globulin Ratio 0.9 (1.1-1.8); Alkaline Phosphatase 143 U/L (38-126); Anion Gap 11.3 mEq/L (5-15); Aspartate Amino Transferase 27 U/L (17-59); Bilirubin,Total 0.4 mg/dl (0.2-1.3); Blood Urea Nitrogen 16 mg/dl (9-20); Carbon Dioxide 29 mmol/L (22.0-30.0); Chloride 102 mmol/L (98-107); Creatinine Clearance Estimated 85 mL/min (50-200); Estimated Glomerular Filt Rate 66 ml/min (>60); GFR (African American) 80 ML/MIN (>60); Globulin 4.2 g/dL (1.3-3.2); Glucose 111 mg/dl (74-100); Magnesium 2.2 mg/dl (1.6-2.3); Potassium 5.3 mmoL/L (3.5-5.1); Sodium 137 mmol/L (136-145); Total Protein,Serum 7.8 g/dl (6.3-8.2)
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
--- NOTE | 2023-01-07 10:45 | HMH.PHAINT1 ---
Pharmacy Intervention Comments: MEDICATION RECONCILIATION COMPLETE USING EXTERNAL PHARMACY FILL HISTORY, ROBYN REPORT, AND MOST RECENT MD OFFICE VISIT.
[2023-01-07 15:13] VITALS: BP 121/66; PULSE 74; RESP 18; TEMP 36.6; O2SAT 97
--- NOTE | 2023-01-07 15:45 | EXP.ACUTE.PN ---
Subjective *Date: 01/07/23 *Time: 15:45 Interval history: Patient states the swelling is somewhat improved. Less swelling in his knee but still quite edematous in the leg. Redness is improving. Still having some drainage from multiple spots of right leg. Afebrile and hemodynamically stable night had no nausea vomiting. Pain or shortness of breath. Medical Exam Vital signs and Labs for Last 24 Hours: Vital Signs Temp Pulse Pulse Resp BP BP Pulse Ox 01/07/23 15:13 97.9 F 74 18 121/66 97 01/07/23 14:52 01/07/23 12:34 01/07/23 10:37 01/07/23 09:00 01/07/23 08:00 01/07/23 07:30 98.9 F 71 18 108/57 L 94 L 01/07/23 07:00 01/07/23 05:00 01/07/23 04:00 98.6 F 73 18 112/46 L 94 L 01/07/23 03:00 01/07/23 01:00 01/06/23 23:00 01/06/23 21:00 01/07/23 00:00 98.4 F 71 18 108/59 L 91 L 01/06/23 22:20 01/06/23 21:00 98.4 F 73 18 116/58 L 93 L 01/06/23 20:29 98.1 F 76 20 106/42 L 01/06/23 18:31 78 116/91 H 91 L 01/06/23 18:01 74 119/55 L 93 L 01/06/23 17:30 67 20 119/60 95 01/06/23 17:01 67 20 123/66 95 O2 Del Method 01/07/23 15:13 Room Air 01/07/23 14:52 Room Air 01/07/23 12:34 Room Air 01/07/23 10:37 Room Air 01/07/23 09:00 Room Air 01/07/23 08:00 Room Air 01/07/23 07:30 Room Air 01/07/23 07:00 Room Air 01/07/23 05:00 Room Air 01/07/23 04:00 Room Air 01/07/23 03:00 Room Air 01/07/23 01:00 Room Air 01/06/23 23:00 Room Air 01/06/23 21:00 Room Air 01/07/23 00:00 Room Air 01/06/23 22:20 Room Air 01/06/23 21:00 Room Air 01/06/23 20:29 Room Air 01/06/23 18:31 Room Air 01/06/23 18:01 Room Air 01/06/23 17:30 01/06/23 17:01 Intake and Output 01/06/23 01/07/23 01/07/23 23:59 07:59 15:59 Intake Total 480 / 720 240 / 720 Output Total 300 / 900 1300 / 1300 0 / 1300 Balance -300 / -900 -820 / -580 240 / -580 Intake: Intake, Oral Amount 480 / 720 240 / 720 Output: Output, Urine Amount 300 / 900 1300 / 1300 0 / 1300 Other: Number of Unmeasured Voids 0 0 Weight 95.765 kg 95.821 kg 95.821 kg Patient Weight 01/07/23 23:59 Weight 95.821 kg Laboratory Results - last 24 hr 01/06/23 17:20: VBG pH 7.34, VBG pCO2 55.0 H, VBG pO2 23.2 L, VBG HCO3 29.2, VBG Total CO2 30.9 H, VBG O2 Saturation 43.7 L, VBG Base Excess 3.5 H 01/06/23 17:38: WBC 9.9, RBC 3.78 L, Hgb 11.5 L, Hct 36.9 L, MCV 97.8 H, MCH 30.4, MCHC 31.1 L, RDW 14.8, Plt Count 347, MPV 8.9, Neut % (Auto) 67.0, Lymph % (Auto) 20.4, [place] % (Auto) 7.1, Eos % (Auto) 4.9, Baso % (Auto) 0.6, Neut # (Auto) 6.6, Lymph # (Auto) 2.0, [place] # (Auto) 0.7, Eos # (Auto) 0.5 H, Baso # (Auto) 0.1, ESR > 140 H, Sodium 138, Potassium 5.2 H, Chloride 100, Carbon Dioxide 33 H, Anion Gap 10.2, BUN 20, Creatinine 1.40 H, Estimated Creat Clear 53, Estimated GFR 50 L, Est GFR ( Amer) 61, Glucose 104 H, Lactate 0.9, Calcium 9.4, Total Bilirubin 0.2, AST 25, ALT 28, Alkaline Phosphatase 167 H, Total Creatine Kinase 46 L, Total Protein 7.9, Albumin 3.7, Globulin 4.2 H, Albumin/Globulin Ratio 0.9 L, Procalcitonin 0.146 01/07/23 07:00: WBC 9.0, RBC 3.99 L, Hgb 12.4 L, Hct 39.7 L, MCV 99.5 H, MCH 31.0, MCHC 31.1 L, RDW 14.9, Plt Count 324, MPV 8.9, Neut % (Auto) 66.3, Lymph % (Auto) 20.4, [place] % (Auto) 6.7, Eos % (Auto) 5.8, Baso % (Auto) 0.8, Neut # (Auto) 6.0, Lymph # (Auto) 1.8, [place] # (Auto) 0.6, Eos # (Auto) 0.5 H, Baso # (Auto) 0.1, Sodium 137, Potassium 5.3 H, Chloride 102, Carbon Dioxide 29, Anion Gap 11.3, BUN 16, Creatinine 1.10 D, Estimated Creat Clear 85, Estimated GFR 66, Est GFR ( Amer) 80 D, Glucose 111 H, Calcium 9.0, Magnesium 2.2, Total Bilirubin 0.4, AST 27, ALT 26, Alkaline Phosphatase 143 H, Total Protein 7.8, Albumin 3.6, Globulin 4.2 H, Albumin/Globulin Ratio 0.9 L I & O for Labs for Last 24 Hours: Intake & Output 01/04/23 01/05/23 01/06/23 01/07/23 23:59
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
--- NOTE | 2023-01-07 18:07 | PC.NURSE ---
Pt A/O, Pt has set on the side of the bed most of the shift, Pt has received lasix and has had good urine output this shift, Pt pain has remained under control, Pt has home meds at bedside (pharmacy and MD aware), Pt offers no complaints at this time.
[2023-01-07 19:59] VITALS: BP 101/56; PULSE 66; RESP 18; TEMP 36.7; O2SAT 92
[2023-01-07 23:59] VITALS: BP 144/55; PULSE 67; RESP 18; TEMP 37; O2SAT 92
[2023-01-08 04:00] VITALS: BP 134/77; PULSE 70; RESP 18; TEMP 36.6; O2SAT 95; BMI 36.1
[2023-01-08 06:26] LABS: MANUAL DIFFERENTIAL MANUAL DIFFERENTIAL (MANUAL DIFF)
[2023-01-08 06:30] LABS: Basophils # 0.1 K/mm3 (0-0.2); Basophils % 0.6 % (0.1-2.0); Eosinophils # 0.5 K/mm3 (0.0-0.4); Eosinophils % 5.7 % (0.1-12.0); Hematocrit 36.2 % (42.0-52.0); Hemoglobin 11.2 g/dL (14.1-18.0); Lymphocytes # 2.4 K/mm3 (0.7-4.5); Lymphocytes % 25.5 % (10-50); Mean Corpuscular HGB Conc 31.1 g/dL (31.8-35.4); Mean Corpuscular Hemoglobin 30.9 pg (27.0-31.2); Mean Corpuscular Volume 99.5 fl (80-94); Mean Platelet Volume 8.9 fl (7.4-10.4); Monocytes # 0.7 K/mm3 (0.1-1.0); Monocytes % 7.7 % (1.7-9.3); Neutrophils # 5.8 K/mm3 (1.8-7.8); Neutrophils % 60.5 % (37.0-80.0); Platelet Count 311 K/mm3 (142-424); Red Blood Count 3.64 M/mm3 (4.60-6.20); Red Cell Distribution Width 14.7 % (11.5-17.5); White Blood Count 9.5 K/mm3 (4.8-10.8)
[2023-01-08 06:43] LABS: Anion Gap 10.2 mEq/L (5-15); Blood Urea Nitrogen 16 mg/dl (9-20); Calcium 8.6 mg/dl (8.4-10.2); Carbon Dioxide 31 mmol/L (22.0-30.0); Chloride 102 mmol/L (98-107); Creatinine Clearance Estimated 72 mL/min (50-200); Estimated Glomerular Filt Rate 55 ml/min (>60); GFR (African American) 66 ML/MIN (>60); Glucose 115 mg/dl (74-100); Potassium 5.2 mmoL/L (3.5-5.1); Sodium 138 mmol/L (136-145)
[2023-01-08 07:48] VITALS: BP 129/64; PULSE 64; RESP 17; TEMP 37; O2SAT 91
[2023-01-08 08:17] LABS: Eosinophils % 4 % (0-3); Lymphocytes % 26 % (10-50); Monocytes % 6 % (2-9); Neutrophils % 64 % (42-76); Platelet Estimate Normal; RBC Morphology Normal; Total Cells Counted 100
--- NOTE | 2023-01-08 10:43 | PC.NURSE ---
Verified with Dr. Douglas the IV fluid order.
[2023-01-08 11:02] LABS: NT Pro Brain Natriuretic Pep. 332 pg/mL (0-125)
--- NOTE | 2023-01-08 13:45 | CA_ITS ---
FINAL REPORT CLINICAL HISTORY: SWELLING,CELLULITIS,WEEPING BLISTERS RIGHT CALF COMPARISON: None FINDINGS: DUPLEX VENOUS SONOGRAPHY OF THE RIGHT LOWER EXTREMITY Multiple transverse and longitudinal scans were performed of the femoropopliteal deep venous system, with augmentation and compression maneuvers. HISTORY: Edema and cellulitis FINDINGS: Normal phasic flow was noted in the visualized deep venous system. No intraluminal increased echogenicity is noted to suggest thrombus. There is normal compression and augmentation of the venous structures. No abnormal venous collaterals are seen. IMPRESSION: No evidence of deep venous thrombosis of the right lower extremity. Reviewed, Interpreted and Dictated by Nani Garcia MD Transcribed by Татьяна Hernandez Authenticated and [facility]
--- NOTE | 2023-01-08 13:46 | EXP.ACUTE.PN ---
Subjective *Date: 01/08/23 *Time: 14:03 Interval history: Patient feels like he is making more urine. Feels the swelling is down a bit. Improvement in pain and swelling of his thigh. Denies any shortness of breath or chest pain. Tolerating p.o. intake. Ambulating to the bathroom. Medical Exam Vital signs and Labs for Last 24 Hours: Vital Signs Temp Pulse Resp BP Pulse Ox O2 Del Method 01/08/23 12:32 Room Air 01/08/23 10:43 Room Air 01/08/23 09:00 Room Air 01/08/23 08:00 Room Air 01/08/23 07:48 98.6 F 64 17 129/64 91 L Room Air 01/08/23 07:00 Room Air 01/08/23 05:00 Room Air 01/08/23 04:00 97.8 F 70 18 134/77 95 Room Air 01/08/23 03:00 Room Air 01/08/23 01:00 Room Air 01/07/23 23:59 98.6 F 67 18 144/55 H 92 L Room Air 01/07/23 21:00 Room Air 01/07/23 23:00 Room Air 01/07/23 20:00 Room Air 01/07/23 19:59 98.0 F 66 18 101/56 L 92 L Room Air 01/07/23 18:50 Room Air 01/07/23 17:00 Room Air 01/07/23 15:13 97.9 F 74 18 121/66 97 Room Air 01/07/23 14:52 Room Air Intake and Output 01/07/23 01/08/23 01/08/23 23:59 07:59 15:59 Intake Total 240 / 2103 2807 / 3167 360 / 3167 Output Total 500 / 1800 800 / 1450 650 / 1450 Balance -260 / 303 2007 / 1717 -290 / 1717 Intake: Intake, Oral Amount 240 / 1400 440 / 800 360 / 800 Intake, Other Amount 1664 / 1664 Intake, Total IV Amount 703 / 703 0.9 % Sodium Chloride 1000ML 1, 500 / 500 000 ml @ 100 mls/hr IV .Q10H [facility] Rx#:[id number] Piperacillin/Tazo 4.5 gm In 0.9 200 / 200 % Sodium Chloride 100 ml @ 200 mls/hr IV Q6H [facility] Rx#:[id number] Vancomycin/Water For Inj (Peg) 1.75 gm In 350 ml @ 175 mls/hr IV Q24H [facility] Rx#:[id number] Output: Output, Urine Amount 500 / 1800 800 / 1450 650 / 1450 Other: Number of Unmeasured Voids 0 1 0 Number of Bowel Movements 1 Weight 95.821 kg Patient Weight 01/08/23 23:59 Weight 95.821 kg Laboratory Results - last 24 hr 01/08/23 05:35: WBC 9.5, RBC 3.64 L, Hgb 11.2 L, Hct 36.2 L, MCV 99.5 H, MCH 30.9, MCHC 31.1 L, RDW 14.7, Plt Count 311, MPV 8.9, Neut % (Auto) 60.5, Lymph % (Auto) 25.5, [place] % (Auto) 7.7, Eos % (Auto) 5.7, Baso % (Auto) 0.6, Neut # (Auto) 5.8, Lymph # (Auto) 2.4, [place] # (Auto) 0.7, Eos # (Auto) 0.5 H, Baso # (Auto) 0.1, Total Counted 100, Neutrophils % (Manual) 64, Lymphocytes % (Manual) 26, Monocytes % (Manual) 6, Eosinophils % (Manual) 4 H, Platelet Estimate Normal, RBC Morphology Normal, Sodium 138, Potassium 5.2 H, Chloride 102, Carbon Dioxide 31 H, Anion Gap 10.2, BUN 16, Creatinine 1.30 H, Estimated Creat Clear 72, Estimated GFR 55 L, Est GFR ( Amer) 66, Glucose 115 H, Calcium 8.6, NT-Pro-B Natriuret Pep 332 H I & O for Labs for Last 24 Hours: Intake & Output 01/05/23 01/06/23 01/07/23 01/08/23 23:59 23:59 23:59 23:59 Intake Total 1200 / 2103 3167 / 3167 Output Total 300 / 900 1800 / 1800 1450 / 1450 Balance -300 / -900 -600 / 303 1717 / 1717 Weight 95.765 kg 95.821 kg 95.821 kg Microbiology Reports for the Last 24 Hours: Microbiology 01/07/23 04:55 Leg,Right Gram Stain - Final 01/07/23 04:55 Leg,Right Wound Culture - Preliminary NO GROWTH AFTER 24 HOURS 01/06/23 18:05 Blood Blood Culture - Preliminary Constitutional: Present no acute distress, average body habitus and chronically ill appearing Head: Present atraumatic and normocephalic ENT: Present normal exam Neck: Present normal inspection Respiratory: Present normal respiratory effort; Absent rhonchi, stridor, wheezes or crackles Cardiac: Present Reg Rate and Rhythm GI: Present soft and normal bowel sounds; Absent distention or tenderness Comment:: Numerous scars from previous surgeries, limited range of motion at knees. Right lower extremity with 3+ edema to knee; left lower extremity with 1+ edema to knee.
[2023-01-08 16:00] VITALS: BP 125/70; PULSE 65; RESP 18; TEMP 37.3; O2SAT 97
[2023-01-08 19:47] VITALS: BP 125/63; PULSE 76; RESP 18; TEMP 36.6; O2SAT 95
[2023-01-08 20:24] LABS: C-Reactive Protein 97.6 mg/L (0-4)
[2023-01-09 04:00] VITALS: BP 105/54; PULSE 69; RESP 18; TEMP 36.6; O2SAT 90; BMI 36.4
[2023-01-09 04:24] LABS: Vancomycin,Trough 13.1 ug/mL (5.0-10.0)
--- NOTE | 2023-01-09 04:41 | PC.NURSE ---
vncomycin trough value 14.1. spoke to [facility] pharmacy who approved to give current dose
--- NOTE | 2023-01-09 04:43 | PC.NURSE ---
vancomycin trough 13.1. notified shift engineer pharmacist who APPROVED TO START CURRENT ORDERED IV VANCOMYCIN
[2023-01-09 06:22] LABS: Basophils # 0.1 K/mm3 (0-0.2); Basophils % 0.5 % (0.1-2.0); Eosinophils # 0.5 K/mm3 (0.0-0.4); Hematocrit 37.3 % (42.0-52.0); Hemoglobin 11.5 g/dL (14.1-18.0); Lymphocytes # 2.4 K/mm3 (0.7-4.5); Lymphocytes % 27.8 % (10-50); Mean Corpuscular HGB Conc 30.8 g/dL (31.8-35.4); Mean Corpuscular Hemoglobin 30.8 pg (27.0-31.2); Mean Corpuscular Volume 100.1 fl (80-94); Mean Platelet Volume 8.4 fl (7.4-10.4); Monocytes # 0.7 K/mm3 (0.1-1.0); Monocytes % 7.8 % (1.7-9.3); Neutrophils # 4.9 K/mm3 (1.8-7.8); Platelet Count 322 K/mm3 (142-424); Red Blood Count 3.73 M/mm3 (4.60-6.20); Red Cell Distribution Width 14.8 % (11.5-17.5); White Blood Count 8.5 K/mm3 (4.8-10.8)
[2023-01-09 07:01] LABS: Erythrocyte Sedimentation Rate 109 mm/hr (0-20)
[2023-01-09 07:25] LABS: Alanine Aminotransferase 21 U/L (12-78); Albumin Level 3.3 g/dl (3.5-5.0); Albumin/Globulin Ratio 0.9 (1.1-1.8); Alkaline Phosphatase 104 U/L (38-126); Anion Gap 13.9 mEq/L (5-15); Aspartate Amino Transferase 24 U/L (17-59); Bilirubin,Total 0.2 mg/dl (0.2-1.3); Blood Urea Nitrogen 18 mg/dl (9-20); Calcium 8.9 mg/dl (8.4-10.2); Carbon Dioxide 27 mmol/L (22.0-30.0); Chloride 103 mmol/L (98-107); Creatinine Clearance Estimated 72 mL/min (50-200); Estimated Glomerular Filt Rate 55 ml/min (>60); GFR (African American) 66 ML/MIN (>60); Globulin 3.8 g/dL (1.3-3.2); Glucose 133 mg/dl (74-100); Magnesium 2.2 mg/dl (1.6-2.3); Potassium 4.9 mmoL/L (3.5-5.1); Sodium 139 mmol/L (136-145); Total Protein,Serum 7.1 g/dl (6.3-8.2)
[2023-01-09 07:27] VITALS: BP 115/80; PULSE 67; RESP 16; TEMP 36.4; O2SAT 96
[2023-01-09 08:55] LABS: Vancomycin,Peak 32.8 ug/ml (11-39)
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
[2023-01-09 09:30] VITALS: BMI 36.4
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
--- NOTE | 2023-01-09 10:23 | EXP.PHA.PN ---
Subjective *Date: 01/09/23 *Time: 10:23 Medical Exam Vital signs and Labs for Last 24 Hours: Vital Signs Temp Pulse Resp BP Pulse Ox O2 Del Method 01/09/23 07:27 97.6 F 67 16 115/80 96 Room Air 01/09/23 05:00 Room Air 01/09/23 04:00 97.9 F 69 18 105/54 L 90 L Room Air 01/09/23 03:00 Room Air 01/09/23 01:00 Room Air 01/08/23 23:00 Room Air 01/08/23 21:00 Room Air 01/08/23 22:00 Room Air 01/08/23 19:47 97.9 F 76 18 125/63 95 Room Air 01/08/23 18:25 Room Air 01/08/23 17:00 Room Air 01/08/23 16:00 99.1 F 65 18 125/70 97 Room Air 01/08/23 15:00 Room Air 01/08/23 12:32 Room Air 01/08/23 10:43 Room Air Intake and Output 01/08/23 01/09/23 01/09/23 23:59 07:59 15:59 Intake Total 470 / 3637 300 / 300 Output Total 1825 / 4175 400 / 400 Balance -1355 / -538 -100 / -100 Intake: Intake, Oral Amount 470 / 1270 300 / 300 Output: Output, Urine Amount 1825 / 4175 400 / 400 Other: Number of Unmeasured Voids 0 1 Number of Bowel Movements 1 1 Weight 96.842 kg 96.82 kg Patient Weight 01/09/23 23:59 Weight 96.82 kg Laboratory Results - last 24 hr 01/06/23 17:38: C-Reactive Protein 97.6 H 01/08/23 05:35: NT-Pro-B Natriuret Pep 332 H 01/09/23 02:52: Vancomycin Trough 13.1 H 01/09/23 05:50: WBC 8.5, RBC 3.73 L, Hgb 11.5 L, Hct 37.3 L, MCV 100.1 H, MCH 30.8, MCHC 30.8 L, RDW 14.8, Plt Count 322, MPV 8.4, Neut % (Auto) 58.0, Lymph % (Auto) 27.8, [place] % (Auto) 7.8, Eos % (Auto) 6.0, Baso % (Auto) 0.5, Neut # (Auto) 4.9, Lymph # (Auto) 2.4, [place] # (Auto) 0.7, Eos # (Auto) 0.5 H, Baso # (Auto) 0.1, ESR 109 H, Sodium 139, Potassium 4.9, Chloride 103, Carbon Dioxide 27, Anion Gap 13.9, BUN 18, Creatinine 1.30 H, Estimated Creat Clear 72, Estimated GFR 55 L, Est GFR ( Amer) 66, Glucose 133 H, Calcium 8.9, Magnesium 2.2, Total Bilirubin 0.2, AST 24, ALT 21, Alkaline Phosphatase 104, Total Protein 7.1, Albumin 3.3 L, Globulin 3.8 H, Albumin/Globulin Ratio 0.9 L 01/09/23 08:10: Vancomycin Peak 32.8 I & O for Labs for Last 24 Hours: Intake & Output 01/06/23 01/07/23 01/08/23 01/09/23 23:59 23:59 23:59 23:59 Intake Total 1200 / 2103 3637 / 3637 300 / 300 Output Total 300 / 900 1800 / 1800 4175 / 4175 400 / 400 Balance -300 / -900 -600 / 303 -538 / -538 -100 / -100 Weight 95.765 kg 95.821 kg 95.821 kg 96.82 kg Microbiology Reports for the Last 24 Hours: Microbiology 01/07/23 04:55 Leg,Right Gram Stain - Final 01/07/23 04:55 Leg,Right Wound Culture - Preliminary NO GROWTH AFTER 48 HOURS 01/06/23 17:20 Blood Blood Culture - Preliminary NO GROWTH AFTER 48 HOURS The patient's infection will respond to the chosen ABx?: Yes Is the patient receiving the right drug, dose, and route?: Yes Could a more targeted ABx be ordered?: No (WBC WNL; CX NEGATIVE.)
--- NOTE | 2023-01-09 10:30 | PC.NURSE ---
Patient dressing himself to leave. Pt states, An older man came in and said I could leave today. He said he was sending me home. After speaking to Dr. Lynn, I inform the patient per Dr. Medley said he hadn't seen him yet and if he leaves now he would need to sign an AMA form. The patient insists he has been discharged. I did removed the right AC IV in the event the patient leaves the room prior to being discharged. Dr. Lynn comes to the door states, yeah, I did see him. He is going to be discharged but I'm not ready to let him go. If he wants to leave now he needs to sign an AMA form .
--- NOTE | 2023-01-09 10:34 | PC.NURSE ---
patient adamant to leave now as his ride is on the way. The patient refuses to sign the AMA form since the doctor stated he was discharging him today, he just was not ready to do it now. I did express the importance in waiting for the discharge order since it was likely an antibiotic order would he in those orders. The patient states, tell him to hurry or I am gone. My baby brother has to get [place] before dark, before it rains. Dr. Lynn is currently in another patient room.
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
[2023-01-09 13:00] LABS: C-Reactive Protein 97.6 mg/L (0-4)
--- NOTE | 2023-01-10 13:52 | CARE MANAGER ---
Patient states he feels better. He picked up his antibiotic yesterday. He is aware of follow up appointments and denies any questions. SANDOVAL Calixto
== END 2023-01-09 11:05 | disposition home or self-care (01) ==
LOC: ER 16:59 → 2ND 21:25
PROVIDERS: Nurse Practitioner Family; Admitting Provider Internal Medicine Adolescent Medicine; Emergency Provider Emergency Medicine; PCP Nurse Practitioner Family; Visit Provider Internal Medicine Adolescent Medicine
DX: L03.115 Cellulitis of right lower limb (principal); R79.82 Elevated C-reactive protein (CRP); N17.9 Acute kidney failure, unspecified; Z21 Asymptomatic human immunodeficiency virus [HIV] infection status; F11.90 Opioid use, unspecified, uncomplicated; F17.210 Nicotine dependence, cigarettes, uncomplicated; I50.33 Acute on chronic diastolic (congestive) heart failure; Z79.899 Other long term (current) drug therapy
CPT/HCPCS: 36415; 73701; 80048; 80053; 80202; 82550; 82803; 83605; 83735; 83880; 84145; 85007; 85014; 85018; 85025; 85048; 85049; 85651; 86140; 87040; 87070; 87077; 87186; 87205; 93971; 99285; G0378; J2543; J3370; Q9967

== ENCOUNTER → 2023-01-16 16:14 | Outpatient (CLI) | payer MEDICARE, MEDICAID, SELFPAY ==
[2023-01-16 14:44] LABS: Anion Gap 13.7 mEq/L (5-15); Blood Urea Nitrogen 14 mg/dl (9-20); Calcium 9.5 mg/dl (8.4-10.2); Carbon Dioxide 30 mmol/L (22.0-30.0); Chloride 102 mmol/L (98-107); Estimated Glomerular Filt Rate 83 ml/min (>60); GFR (African American) 101 ML/MIN (>60); Glucose 79 mg/dl (74-100); Potassium 4.7 mmoL/L (3.5-5.1); Sodium 141 mmol/L (136-145)
== END ==
PROVIDERS: PCP Nurse Practitioner Family; Visit Provider Nurse Practitioner Family
DX: N17.9 Acute kidney failure, unspecified (principal)
CPT/HCPCS: 80048

== ENCOUNTER 2023-02-08 14:30 | Outpatient (RCR) | payer MEDICARE, MEDICAID, SELFPAY ==
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
== END 2023-02-08 14:35 | disposition home or self-care (01) ==
LOC: PT 14:30
PROVIDERS: PCP Nurse Practitioner Family; Visit Provider Orthopaedic Surgery
DX: L03.115 Cellulitis of right lower limb (principal)
CPT/HCPCS: 29580; 97140; 97163; 97597

== ENCOUNTER 2023-04-19 13:00 | Outpatient (CLI) | payer MEDICARE, MEDICAID, SELFPAY ==
[2023-04-20 12:08] LABS: Amphetamine/Metha Screen,Urine Negative ng/ml (<1000); Barbiturates Screen,Urine Negative ng/ml (<200); Benzodiazepines Screen,Urine Negative ng/ml (<200); Cannabinoid Screen,Urine Negative ng/ml (<50); Cocaine Screen,Urine Negative ng/ml (<300); Methadone Screen,Urine Negative ng/ml (<300); Opiate Screen,Urine Positive ng/ml (<300); Phencyclidine Screen,Urine Negative ng/ml (<25)
== END 2023-04-19 23:59 ==
LOC: LAB.DROPOF 04-20 11:18
PROVIDERS: PCP Nurse Practitioner Family; Visit Provider Nurse Practitioner Family
DX: M51.16 Intervertebral disc disorders with radiculopathy, lumbar region (principal)
CPT/HCPCS: 80307

== ENCOUNTER → 2023-05-17 09:55 | Outpatient (POV) | payer MEDICARE, MEDICAID, SELFPAY ==
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
[2023-05-17 10:37] VITALS: BP 157/78; PULSE 70; RESP 18; O2SAT 94; BMI 30.2
== END ==
LOC: SC.PAIN 09:56
PROVIDERS: PCP Nurse Practitioner Family; Visit Provider Nurse Practitioner Family
DX: G89.4 Chronic pain syndrome (principal); M47.26 Other spondylosis with radiculopathy, lumbar region; M50.10 Cervical disc disorder with radiculopathy, unspecified cervical region
CPT/HCPCS: 99202; G0463

== ENCOUNTER 2023-08-23 12:06 | Outpatient (CLI) | payer MEDICARE, MEDICAID, SELFPAY ==
[2023-08-23 17:58] LABS: Microscopic, Urine URINE MICROSCOPIC (MICROSCOPIC)
[2023-08-23 18:18] LABS: Basophils # 0.1 K/mm3 (0-0.2); Basophils % 1.4 % (0.1-2.0); Eosinophils # 0.4 K/mm3 (0.0-0.4); Eosinophils % 5.1 % (0.1-12.0); Hematocrit 41.5 % (42.0-52.0); Hemoglobin 13.3 g/dL (14.1-18.0); Lymphocytes # 2.3 K/mm3 (0.7-4.5); Lymphocytes % 32.8 % (10-50); Mean Corpuscular HGB Conc 32.1 g/dL (31.8-35.4); Mean Corpuscular Hemoglobin 32.3 pg (27.0-31.2); Mean Corpuscular Volume 100.7 fl (80-94); Mean Platelet Volume 9.5 fl (7.4-10.4); Monocytes # 0.4 K/mm3 (0.1-1.0); Monocytes % 6.1 % (1.7-9.3); Neutrophils # 3.8 K/mm3 (1.8-7.8); Neutrophils % 54.6 % (37.0-80.0); Platelet Count 206 K/mm3 (142-424); Red Blood Count 4.12 M/mm3 (4.60-6.20); Red Cell Distribution Width 13.8 % (11.5-17.5); White Blood Count 6.9 K/mm3 (4.8-10.8)
[2023-08-23 19:18] LABS: Alanine Aminotransferase 19 U/L (12-78); Albumin Level 4.3 g/dl (3.5-5.0); Albumin/Globulin Ratio 1.3 (1.1-1.8); Alkaline Phosphatase 117 U/L (38-126); Anion Gap 14.8 mEq/L (5-15); Aspartate Amino Transferase 33 U/L (17-59); Bilirubin,Total 0.6 mg/dl (0.2-1.3); Blood Urea Nitrogen 15 mg/dl (9-20); Calcium 9.7 mg/dl (8.4-10.2); Carbon Dioxide 30 mmol/L (22.0-30.0); Chloride 102 mmol/L (98-107); Chol/HDL Ratio 4.3 (1-3.5); Cholesterol 154 mg/dl (140-200); Estimated Glomerular Filt Rate 74 ml/min (>60); GFR (African American) 89 ML/MIN (>60); Globulin 3.2 g/dL (1.3-3.2); Glucose 93 mg/dl (74-100); HDL Cholesterol 36 mg/dl (40-60); Potassium 4.8 mmoL/L (3.5-5.1); Sodium 142 mmol/L (136-145); Total Protein,Serum 7.5 g/dl (6.3-8.2); Triglycerides 197 mg/dl (30-150); VLDL Cholesterol 39 mg/dL (0-40)
[2023-08-23 19:30] LABS: Direct LDL Cholesterol 89.68 mg/dL (100-129)
[2023-08-23 19:34] LABS: Free T4 (Free Thyroxine) 1.28 ng/dl (0.78-2.19)
[2023-08-23 19:38] LABS: 25-OH Vitamin D, Total 28.5 ng/mL (30-100)
[2023-08-23 19:50] LABS: Prostate Specific Ag Screen 0.1 ng/ml (0.0-4.0); Thyroid Stimulating Hormone 0.72 uIU/mL (0.465-4.68)
[2023-08-23 20:09] LABS: Vitamin B12 622 pg/mL (239-931)
[2023-08-23 20:13] LABS: Hemoglobin A1C 5.7 % (4.0-6.0)
[2023-08-23 21:56] LABS: Appearance,Urine CLEAR (Clear); Bilirubin,Urine Negative (Negative); Blood, Urine Negative (Negative); Color,Urine YELLOW (Yellow); Glucose,Urine (UA) Negative (Negative); Ketones,Urine Negative (Negative); Leukocyte Esterase,Urine Negative (Negative); Nitrate,Urine Negative (Negative); PH,Urine 7.5 (5.0-8.5); Protein,Urine Negative (Negative)
[2023-08-23 22:06] LABS: Bacteria,Urine 1+ /lpf; Squamous Epithelial Cell,Urine Occasional #/hpf (0-5)
[2023-08-25 11:33] LABS: HBsAg Screen Negative (Negative); HCV Ab Non Reactive (Non Reactive); Hep A Ab, IGM Negative (Negative); Hep B Core Ab, IgM Negative (Negative)
== END 2023-08-23 23:59 | disposition home or self-care (01) ==
LOC: LAB.DROPOF 08-24 12:07
PROVIDERS: PCP Nurse Practitioner Family; Visit Provider Nurse Practitioner Family
DX: R53.83 Other fatigue (principal); Z11.3 Encounter for screening for infections with a predominantly sexual mode of transmission; I50.33 Acute on chronic diastolic (congestive) heart failure; D64.9 Anemia, unspecified; Z12.5 Encounter for screening for malignant neoplasm of prostate; E11.9 Type 2 diabetes mellitus without complications; M81.0 Age-related osteoporosis without current pathological fracture; K75.9 Inflammatory liver disease, unspecified; R39.9 Unspecified symptoms and signs involving the genitourinary system; E78.5 Hyperlipidemia, unspecified; Z13.220 Encounter for screening for lipoid disorders; B96.89 Other specified bacterial agents as the cause of diseases classified elsewhere
CPT/HCPCS: 80053; 80061; 80074; 81001; 82306; 82607; 83036; 84439; 84443; 85025; 87077; 87086; 87088; G0103